=== PATIENT | female | born 1975 | race Two or more races ===

== ENCOUNTER 2023-02-18 12:55 | Emergency (ER) | payer BC, SELFPAY ==
[2023-02-18 13:02] VITALS: BP 130/82; PULSE 61; RESP 18; TEMP 36.2; O2SAT 100; BMI 30.1
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
[2023-02-18 13:53] LABS: Lactate* 1.4 mmol/L (0.5-1.9)
[2023-02-18 13:57] LABS: Basophils Percent Auto 0.2 % (0.0-3.0); Eosinophils Percent Auto 0.9 % (0.0-7.0); Hematocrit 46.4 % (33.0-51.0); Hemoglobin* 15.7 gm/dL (12.0-16.0); Immature Granulocytes Pct Auto 0.2 %; Lymphocytes Percent Auto 14.1 % (20-44); Mean Corpuscular HGB Conc 34 gm/dL (32-36); Mean Corpuscular Hemoglobin 31 pg (26-34); Mean Corpuscular Volume 93 fL (80-100); Monocytes Percent Auto 4.3 % (0.0-11.0); Neutrophils Percent Auto 80.3 % (42.0-72.0); Platelet Count* 439 K/uL (140-440); RDW Coefficient of Variation % 13.9 % (11.5-15.5); White Blood Count* 18.88 K/uL (4.50-11.00)
[2023-02-18 13:59] LABS: Slide Review Reflex No
[2023-02-18] MEDS: 0.9 % SODIUM CHLORIDE 1000 ml 1,000 ML IV (14:00)
[2023-02-18] MEDS: ONDANSETRON 2 MG/ML inj 4 MG IVP (14:01)
[2023-02-18 14:15] LABS: Chloride* 105 mmol/L (96-114)
[2023-02-18 14:16] LABS: Potassium* 3.4 mmol/L (3.6-5.1); Sodium* 139 mmol/L (135-149)
[2023-02-18 14:18] LABS: Creatinine* 0.6 mg/dL (0.5-1.5); Est. Creatinine Clearance* 95.88; Estimated Glomerular Filt Rate 111 ml/min
[2023-02-18 14:19] LABS: Alanine Aminotransferase* 34 U/L (4-35); Alkaline Phosphatase* 85 U/L (40-150); Anion Gap 12 mEq/L (7-15); Aspartate Amino Transferase* 38 U/L (12-35); Bilirubin Total* 0.8 mg/dL (0.1-1.5); Blood Urea Nitrogen* 18 mg/dL (5-24); Carbon Dioxide* 22 mmol/L (20-32); Glucose* 111 mg/dL (60-115); Total Protein* 9.3 g/dL (6.0-8.3)
[2023-02-18 14:20] LABS: Calcium* 9.5 mg/dL (8.4-10.6)
[2023-02-18 14:22] LABS: C Reactive Protein* 0.7 mg/dL (0.5-1.0)
[2023-02-18 14:31] LABS: Lipase* 127 U/L (23-300)
--- NOTE | 2023-02-18 14:33 | CRLHL7_ITS ---
For Patients: As a result of the Century Cures Act, medical imaging exams and procedure reports are released immediately into your electronic medical record. You may view this report before your referring provider. If you have questions, please contact your health care provider. INDICATION: cough x2 weeks INDICATION: Cough for 2 weeks. TECHNIQUE: Chest 2 views. COMPARISON: CT of the abdomen and pelvis, 02/18/2023. FINDINGS: Cardiovascular and mediastinum: Heart size and vasculature are normal in caliber and appearance. Mediastinum is within normal limits. Lungs and pleural spaces: Lungs are clear. No sign of infiltrate or mass. No sign of pleural effusion. No pneumothorax. Bones and soft tissues: No significant findings. IMPRESSION: The lungs are clear. Dictated by Guillaume Nieves MD @ 02/18/2023 3:04:12 PM Dictated by: Guillaume Nieves MD @ 02/18/2023 15:04:20 (Electronically Signed)
--- NOTE | 2023-02-18 14:33 | CRLHL7_ITS ---
For Patients: As a result of the Century Cures Act, medical imaging exams and procedure reports are released immediately into your electronic medical record. You may view this report before your referring provider. If you have questions, please contact your health care provider. INDICATION: ACUTE N/V/D WITH ABD PAIN AND ELEVATED WBC HISTORY: Acute nausea, vomiting, diarrhea. Elevated white blood cell count. COMPARISON: None. TECHNIQUE: CT of the abdomen and pelvis. 83 cc of Isovue-370 IV. Coronal/sagittal reconstruction images. FINDINGS: Lung bases: There is no pleural or pericardial effusion. The heart size is normal. There is no basilar pneumothorax. Abdomen/pelvis: The liver is not entirely included on the field of view. There is no focal liver lesion. Cholecystectomy. No perihepatic ascites. Left upper quadrant splenules. Spleen is not identified. No adrenal mass. Nephroliths in the left intrarenal collecting system. There is no obstructive urolith. Tiny left renal cyst. There is no pancreatic mass or glandular atrophy. Urinary bladder, uterus common adnexa show no acute findings. There is mural thickening present in the colon. These findings are consistent with colitis. This is best demonstrated within the splenic flexure, but also involves the descending and transverse colon. There is also mural thickening in the ascending colon. No secondary signs for appendicitis. There is no inguinal or pelvic sidewall lymphadenopathy. The retroperitoneum and gastrohepatic ligament are normal. There is celiac artery and SMA are patent. ZACHARY is also patent. The bone windows demonstrate a small sclerotic lesion in the left proximal femur. There are no suspicious bone lesions by CT. The alignment is preserved on sagittal reconstruction images. IMPRESSION: 1. Mural thickening within the colon. Colitis is suspected. 2. There is no pneumoperitoneum, drainable fluid collection, pneumatosis coli, or pneumatosis intestinalis. 3. The visceral artery branches are widely patent. The distribution of wall thickening is unlikely to represent ischemic colitis. Infectious etiology is favored. 4. No abdominal or pelvic lymphadenopathy. Dictated by Guillaume Nieves MD @ 02/18/2023 3:34:07 PM Please note that all CT scans at this facility use dose modulation, iterative reconstruction, and/or weight-based dosing when appropriate to reduce radiation dose to as low as reasonably achievable. Dictated by: Guillaume Nieves MD @ 02/18/2023 15:34:15 (Electronically Signed)
[2023-02-18 14:34] LABS: PCR FLU A Negative PCR FLU A (Negative); PCR FLU B Negative PCR FLU B (Negative); PCR RSV Negative PCR RSV (Negative)
[2023-02-18 14:39] LABS: SARS PCR* Negative SARS-CoV-2 (Negative)
[2023-02-18 15:26] VITALS: BP 141/86; PULSE 76; RESP 16; O2SAT 97
[2023-02-18 15:27] LABS: Appearance Urine Clear (Clear); Bilirubin Urine Negative (Negative); Blood Urine 2+ (Negative); Color Urine Yellow (Yellow); Glucose Urine Negative (Negative); Ketones Urine Trace (Negative); Leukocyte Esterase Urine Negative (Negative); Nitrite Urine Negative (Negative); Protein Urine Negative (Negative); Specific Gravity Urine 1.015 (1.000-1.030); Urobilinogen Urine 0.2 (0.2-1.0); pH Urine 5.5 (5.0-8.5)
[2023-02-18 15:38] LABS: Bacteria Urine Moderate; Mucus Urine Few; RBC Urine 0-2 (0-2); Squamous Epithelial Cell Urine Few (None-Few); WBC Urine 0-2 (0-5)
== END 2023-02-18 16:29 | disposition home or self-care (01) ==
PROVIDERS: Emergency Provider Family Medicine
DX: K52.9 Noninfective gastroenteritis and colitis, unspecified (principal)
CPT/HCPCS: 36415; 71046; 74177; 80053; 81001; 83605; 83690; 85025; 86140; 87086; 87186; 87493; 87631; 94761; 96374; 99284; 99285; J2405; J7030; Q9967